=== PATIENT | male | born 1990 | race African-American/Black ===

== ENCOUNTER 2020-01-31 15:45 | Emergency (ER) | payer OTHER ==
[~2020-01-31] VITALS: Ht 175.3 cm; Wt 79.4 kg
[2020-01-31] MEDS ORDERED: HYDROcodone-ACET 7.5/325MG TAB PO ONE (16:45)
[2020-01-31 16:51] VITALS: BP 129/87
== END 2020-01-31 17:22 ==
LOC: ER 15:45 → EEVIPCON 15:45 → ER 17:22
DX: S00.03XA Contusion of scalp, initial encounter (principal); R11.2 Nausea with vomiting, unspecified; X58.XXXA Exposure to other specified factors, initial encounter; Y93.89 Activity, other specified; Y92.89 Other specified places as the place of occurrence of the external cause; Y99.8 Other external cause status
CPT/HCPCS: 70450

== ENCOUNTER → 2020-07-17 | Outpatient (CLI) | payer OTHER ==
[~2020-07-17] MED LIST: IOHEXOL 300 MG/ML 100ML BOTTLE IJ ONE
[2020-07-17 10:52] LABS: BUN/Creatinine Ratio 12.2; Calcium 8.5 mg/dL (8.5-10.1); Potassium 3.9 mmol/L (3.5-5.1)
== END | disposition home or self-care (01) ==
LOC: CT 09:36
DX: Z86.69 Personal history of other diseases of the nervous system and sense organs (principal)
CPT/HCPCS: 36415; 70481; 80048; Q9967